=== PATIENT | female | born 1985 | race African-American/Black ===

== ENCOUNTER 2019-09-08 20:50 | Emergency (ER) | payer OTHER, SELFPAY ==
[2019-09-08 21:03] VITALS: BP 138/77; PULSE 77; RESP 16; TEMP 36.9; O2SAT 98
--- NOTE | 2019-09-13 06:12 | PC.NURSE ---
LATE ENTRY This note is being entered to document information to the patient's record. The following information was omitted on 09/08/2019, patient was triaged but not seen by edp.
== END 2019-09-08 21:03 | disposition left against medical advice (07) ==
LOC: ANHED 22:16
PROVIDERS: PCP Family Medicine
DX: M54.2 Cervicalgia (principal)
CPT/HCPCS: 99199

== ENCOUNTER 2022-01-31 11:40 | Outpatient (CLI) | payer OTHER, SELFPAY ==
--- NOTE | 2022-01-31 11:52 | ECG_ITS ---
Measurements Intervals [place] Rate: 70 P: 50 AL: 163 QRS: 38 QRSD: 81 T: 44 QT: 398 QTc: 431 Interpretive Statements SINUS RHYTHM BASELINE WANDER- I, II, AVR NORMAL ECG Electronically Signed On 01-31-2022 12:02:30 CDT by Merlin Linares D.O.
== END 2022-01-31 11:41 | disposition home or self-care (01) ==
LOC: ANHCARD 11:44
PROVIDERS: Visit Provider Obstetrics & Gynecology
DX: Z01.89 Encounter for other specified special examinations (principal)
CPT/HCPCS: 93005

== ENCOUNTER 2022-02-20 00:51 | Day surgery (SDC) | payer OTHER, SELFPAY ==
[2022-02-11 09:27] VITALS: BMI 47.9
--- NOTE | 2022-02-11 09:31 | PC.NURSE ---
Report to the Outpatient Waiting Room, entrance under the green pavilion located off [facility], at time 0730 on date 02/20/22. OR Time: 0930. - You and your visitor will be asked a series of questions to screen for COVID 19 for your protection. - Only one visitor is allowed at this time. - The patient visitor is requested to leave or wait in car when not with patient. - A mask is required within the hospital. Patients may have clear liquids (water, carbonated beverages, clear teas, apple juice) until 3 hours prior to surgery with a maximum of 20 ounces. - No food from midnight until time of surgery Take the following medications with a SIP of water the morning of surgery: N/A Medications to discontinue per physician: N/A Date to take last dose: N/A Please no make-up, nail urdu, hairspray, perfume, deodorant, or body powder the day of surgery. No jewelry (including any body piercings) or valuables the day of surgery, leave them at home. Please take a shower or bath the night before, or the morning of, surgery with an antibacterial soap. Wear comfortable, loose fitting clothing. - Jewelry must be removed prior to entering the operating room. Rings and piercings that are not removed may be cut off. - The hospital will not accept responsibility for valuables. - Please leave all valuables, including medications, at home the day of surgery. If you are going home after surgery, a licensed straight truck driver must drive you home. - NO public transportation without another adult. - We recommend that an adult stay with you for 24 hours following discharge. - We also recommend that you do not drive, make important decision, drink alcoholic beverages, or take any drugs that were not prescribed by your health care provider for at least 24 hours after your discharge time. Follow any additional instructions given to you from your surgeon. If you or anyone in your household have experienced Covid symptoms in the past week, please notify your surgeon or the nurse liaison at the phone number below for possible testing. Telephone instructions given to PT - ROLAND PARIS and asked if any additional questions and then verbalized understanding. Patient advised to call surgeon office or pre surgery nurse liaison [phone] if any additional questions.
[2022-02-20] VITALS (11 sets, daily range): BP systolic 125–142; BP diastolic 64–84; PULSE 65–87; RESP 12–20; TEMP 36.1–36.2; O2SAT 95–99
--- NOTE | 2022-02-20 08:26 | WPDANESEPPF ---
Anes - Initial Pre Proc Eval Procedure: Operation Date: 02/20/22 09:30 Proposed Procedures p Laparoscopic Bilateral Salpingectomy - Bella Schumacher MD Date/Time: 02/20/22 08:26 Surgeon: Bella Schumacher MD Pre Op Diagnosis: desires sterilzation Patient Data Age: 36 Gender: F Height: 1.66 m Weight: 132.9 kg Allergies Allergy/AdvReac Type Severity Reaction Status Date / Time Chocolate Allergy Unknown Hives Uncoded 02/11/22 09:26 Home Medications Medication Instructions Recorded Confirmed Type No Home Medications 02/11/22 02/11/22 History Patient hx anesthesia problems: none Family hx anesthesia problems: none Results Review: All pre-operative results and documents have been reviewed as part of the pre-operative evaluation. [facility] Social History Social History Smoking status: Never smoker Alcohol intake: current Drinks per week: 1 Substance use: never Substance use type: does not use Living arrangements: with family Gender identity (if verbalized by the patient): Female Spiritual care concerns: No Anes - Eval Final PreProcedure Day of Procedure 02/20/22 08:26 Patient weight: morbidly obese Heart: regular rate and rhythm Lungs: clear to auscultation Airway: Mallampati scale class II Neurological: alert and oriented Last oral intake: >/= 8 hours ASA classification: III Emergent: no Anesthetic plan: proceed Anesthesia type and monitoring: general ETT and standard monitoring Results Review: All pre-operative results and documents have been reviewed as part of the pre-operative evaluation. Informed Consent: The patient's anesthetic plan and its attendant risks and benefits were discussed with the patient/family/POA. Questions were solicited and answers provided to the satisfaction of the patient/family/POA.
--- NOTE | 2022-02-20 08:29 | PM.IMHP ---
H&P: HPI History of Present Illness Date/Time: 02/20/22 08:29 Chief Complaint: sterilization Narrative: Christine is a 36yo who desires permanent sterilization. Had CS x1, has HTN no meds. BMI 50. Review of Systems Review of Systems: All systems reviewed & are unremarkable except as noted in HPI and below PMFSH Social History Social History Smoking status: Never smoker Alcohol intake: current Drinks per week: 1 Substance use: never Substance use type: does not use Living arrangements: with family Gender identity (if verbalized by the patient): Female Spiritual care concerns: No Meds Home Medications and Allergies Home Medications Medication Instructions Recorded Confirmed Type No Home Medications 02/11/22 02/11/22 History Allergies Allergy/AdvReac Type Severity Reaction Status Date / Time Chocolate Allergy Unknown Hives Uncoded 02/11/22 09:26 Exam Const: General: no acute distress Other: morbidly obese Resp: Effort & Inspection: normal respiratory effort Auscultation: clear to auscultation bilaterally Cardio: Rate: regular rate Rhythm: regular rhythm GI: GI Palp: Yes Soft to palpation Extrem: General: normal to inspection Assessment and Plan Assessment and plan (1) Admission for sterilization: Code(s): Z30.2 - Encounter for sterilization Status: Acute Plan Consented for LSC salpingectomy, pt certain she is done childbearing ancef 2gm WIll proceed.
[2022-02-20] MEDS: ACETAMINOPHEN 500 MG TABLET 1000 MG PO (08:30)
--- NOTE | 2022-02-20 08:33 | WPDHPUPDATE1 ---
History and Physical Update Update Date/Time: 02/20/22 08:33 History and Physical has been reviewed, including an updated exam of the patient. There are NO changes in the patient's condition. Risks, benefits, and alternatives have been discussed and questions answered. Patient agrees to proceed with procedure.
[2022-02-20] MEDS: LACTATED RINGERS 1,000 ML 30 ML IV CONT (08:40)
[2022-02-20] MEDS: KETOROLAC 15 MG/ML VIAL (*BKC) IV PUSH (08:40)
[2022-02-20] MEDS: ceFAZolin 3 GM/D5W 100 ML 100 ML IVPB (08:48)
[2022-02-20] MEDS: BUPIVACAINE/EPINEPHRINE 0.25% 50 ML VIAL 20 ML INFILTRATE (09:15)
--- NOTE | 2022-02-20 09:34 | W.PM.PROC2 ---
Procedure Note - Detailed Date of Procedure 02/20/22 Pre-op Diagnosis desires sterilzation Post-op Diagnosis Same Procedure Performed Laparoscopic Bilateral Salpingectomy Surgeon Bella Schumacher MD Anesthesia General Indications undesired future fertility Findings Normal uterus and ovaries and tubes. Adhesion of anterior uterus to anterior abdominal wall. Description of Procedure The patient was taken to the OR and placed in dorthal lithotomy in [facility]. She received general anesthesia. A speculum was placed and the cervix grasped with a single tooth tenaculum and an acorn uterine manipulator placed easily. A lundberg catheter had previously been placed. She had received preoperative antibiotics. A 5mm subumbilical skin incision was made and using direct visualization, the trocar was inserted intraperitoneally. The abdomen was insufflated and the pelvis inspected with the above findings. Bilateral 5mm incisions were made and trocars were placed under direct visualization. The right tube was grasped and elevated and using the Ligasure device, the tube was sequentially cauterized and ligated and removed through the trocar and sent to pathology. Similarly, on the left, the tube was removed using the Ligasure device. Hemostasis was noted. The upper abdomen was inspected and noted to be normal. The small adhesion of the uterus to the anterior abdominal wall was taken down with Ligasure. The trocars were removed and the Co2 was removed from the abdomen. The skin was closed with 4-0 vicryl and steri strips. The patient tolerated the procedure well and was taken to the recovery room in stable condition. EBL 10cc. Estimated Blood Loss 10 Drains No Packing No Pathology Yes Complications No immediate complications Condition Stable Disposition Same day
[2022-02-20] MEDS: fentaNYL CITRATE INJ (*CRX) 100 MCG/2 ML VIAL 25 MCG IV PUSH ×3 (10:03→10:09)
[2022-02-20] MEDS: oxyCODONE HCL (*CRX) 5 MG TAB IR PO (12:11)
== END 2022-02-20 12:40 | disposition home or self-care (01) ==
PROVIDERS: Visit Provider Obstetrics & Gynecology
PROC: (CPT 49320; principal; 2022-02-20 09:30)
DX: Z30.2 Encounter for sterilization (principal); N73.6 Female pelvic peritoneal adhesions (postinfective); N83.8 Other noninflammatory disorders of ovary, fallopian tube and broad ligament; E66.01 Morbid (severe) obesity due to excess calories; Z68.42 Body mass index [BMI] 45.0-49.9, adult
CPT/HCPCS: 58661; 88302; A9270; J0330; J0690; J1100; J1885; J2250; J2405; J2704; J3010; J7030; J7120

== ENCOUNTER 2023-04-09 02:44 | Day surgery (SDC) | payer OTHER, SELFPAY ==
[2023-04-07 17:34] VITALS: BMI 52.2
--- NOTE | 2023-04-07 18:53 | PC.NURSE ---
Report to the Outpatient Waiting Room, entrance under the green pavilion located off [facility], at 1045 on 04-09-23. Planned Procedure Time: 1245. Time changes happen often and if your time is changed the preop area will call you the afternoon before. - You and your visitor will be asked to self-screen and do not enter if you have any COVID symptoms. - A mask is optional within the hospital at this time. Patients may have clear liquids (water, carbonated beverages, clear teas, apple juice) until 3 hours prior to surgery with a maximum of 20 ounces. 0945 - No food from midnight until time of surgery - Infants may have breast milk until 4 hours before surgery, formula 6 hours prior to surgery. - Children will be allowed to drink immediately following surgery. If applicable, please bring a bottle or sippy cup to assist with drinking. Juice, water, soda, and popsicles are readily available. For infants on formula, please bring formula the day of surgery. Pacifiers are allowed. Take the following medications with a SIP of water the morning of surgery: None DO NOT STOP ANY OF YOUR OTHER PRESCRIPTION MEDICATIONS PRIOR TO SURGERY ?EXCEPT THE FOLLOWING Medications to discontinue per physician: N/A Please no make-up, nail setswana, hairspray, perfume, deodorant, or body powder the day of surgery. No jewelry (including any body piercings) or valuables the day of surgery, leave them at home. Please take a shower or bath the night before, or the morning of, surgery with an antibacterial soap. Wear comfortable, loose fitting clothing. Children are encouraged to wear pajamas. - Jewelry must be removed prior to entering the operating room. Rings and piercings that are not removed may be cut off. - The hospital will not accept responsibility for valuables. - Please leave all valuables, including medications, at home the day of surgery. If you are going home after surgery, a licensed tow car driver must drive you home. - NO public transportation without another adult if you receive anesthesia. - We recommend that an adult stay with you for 24 hours following discharge. - We also recommend that you do not drive, make important decision, drink alcoholic beverages, or take any drugs that were not prescribed by your health care provider for at least 24 hours after your discharge time. For Pediatric surgeries, we recommend two adults accompany the child home. Follow any additional instructions given to you from your surgeon. If you or anyone in your household have experienced Covid symptoms in the past week, please notify your surgeon or the nurse liaison at the phone number below for possible testing. Telephone instructions given to Christine Dumont and asked if any additional questions and then verbalized understanding. Patient advised to call surgeon office or pre surgery nurse liaison [phone] if any additional questions.
--- NOTE | 2023-04-09 10:32 | P.PNAN_ITS ---
Anes - Initial Pre Proc Eval Procedure: Operation Date: 04/09/23 12:45 Proposed Procedures p Hysteroscopy Dilation and Curettage Mai Endometrial Ablation - Bella Schumacher MD Date/Time: 04/09/23 10:32 Surgeon: Bella Schumacher MD Pre Op Diagnosis: menorrhagia Patient Data Age: 38 Gender: F Height: 1.66 m Weight: 144.7 kg Allergies Allergy/AdvReac Type Severity Reaction Status Date / Time Chocolate Allergy Unknown Hives Uncoded 04/09/23 11:35 Home Medications Medication Instructions Recorded Confirmed Type ferrous sulfate 325 mg (65 mg 325 mg PO DAILY 04/07/23 04/09/23 History iron) tablet (FeroSul) gabapentin 300 mg capsule 300 mg PO TID 04/07/23 04/09/23 History metformin 500 mg tablet,extended 500 mg PO DAILY 04/07/23 04/09/23 History release 24 hr omeprazole 20 mg capsule,delayed 20 mg PO DAILY 04/07/23 04/09/23 History release Patient hx anesthesia problems: none Family hx anesthesia problems: none Results Review: All pre-operative results and documents have been reviewed as part of the pre- operative evaluation. [facility] Past Medical History Medical History (Updated 04/09/23 @ 10:33 by Rafael Sherman DO) Asthma GERD (gastroesophageal reflux disease) Surgical History Surgical History (Updated 04/09/23 @ 10:33 by Rafael Sherman DO) History of History of tubal ligation Social History Social History Smoking status: Never smoker Second hand tobacco smoke exposure: Yes Alcohol intake: current Drinks per week: 1 Alcohol use details: ocassionally Substance use: never Substance use type: does not use Living arrangements: with family Gender identity (if verbalized by the patient): Female Spiritual care concerns: No Anes - Eval Final PreProcedure Day of Procedure 04/09/23 10:32 Patient weight: super morbidly obese Heart: regular rate and rhythm Lungs: clear to auscultation Airway: Mallampati scale class III Neurological: alert and oriented Last oral intake: >/= 8 hours ASA classification: III Emergent: no Anesthetic plan: proceed Anesthesia type and monitoring: general GIVS and LMA and standard monitoring Results Review: All pre-operative results and documents have been reviewed as part of the pre- operative evaluation. Informed Consent: The patient's anesthetic plan and its attendant risks and benefits were discussed with the patient/family/POA. Questions were solicited and answers provided to the satisfaction of the patient/family/POA.
[2023-04-09 10:57] VITALS: BP 145/84; PULSE 77; RESP 20; TEMP 36.6; O2SAT 100
[2023-04-09] MEDS: LACTATED RINGERS 1,000 ML 30 ML IV CONT (11:40)
[2023-04-09 11:45] LABS: Hematocrit 35.3 % (37.0-47.0); Hemoglobin 11.2 g/dL (12.0-15.0)
[2023-04-09 11:57] LABS: Anion Gap 8 mmol/L (8-16); Blood Urea Nitrogen 11 mg/dL (7-17); Calcium 8.8 mg/dL (8.4-10.2); Carbon Dioxide 23 mmol/L (22-30); Chloride 107 mmol/L (98-107); Estimated CRCL calculation 140 ml/min; Estimated Glomerular Filt Rate > 60; Glucose 98 mg/dL (65-110); Potassium 4.1 mmol/L (3.4-5.0); Sodium 138 mmol/L (137-145)
--- NOTE | 2023-04-09 12:40 | PM.IMHP ---
H&P: HPI History of Present Illness Date/Time: 04/09/23 12:40 Chief Complaint: menorrhagia Narrative: Christine is a 38yo whith menorrhagia who presents for HSC and endometrial ablation today. She has recently expelled a MIrena, though it worked until it was expelled. She expelled two prior >10 years ago. She has migraines and cannot be on estrogen. She is anemic from her bleeding. EMB benign within the last few months. Tubes tied. Review of Systems Review of Systems: All systems reviewed & are unremarkable except as noted in HPI and below PMFSH Past Medical History Medical History (Updated 04/09/23 @ 12:42 by Bella Schumacher MD) Asthma GERD (gastroesophageal reflux disease) Surgical History Surgical History (Updated 04/09/23 @ 10:33 by Rafael Sherman DO) History of History of tubal ligation Social History Social History Smoking status: Never smoker Second hand tobacco smoke exposure: Yes Alcohol intake: current Drinks per week: 1 Alcohol use details: ocassionally Substance use: never Substance use type: does not use Living arrangements: with family Gender identity (if verbalized by the patient): Female Spiritual care concerns: No Meds Home Medications and Allergies Home Medications Medication Instructions Recorded Confirmed Type ferrous sulfate 325 mg (65 mg 325 mg PO DAILY 04/07/23 04/09/23 History iron) tablet (FeroSul) gabapentin 300 mg capsule 300 mg PO TID 04/07/23 04/09/23 History metformin 500 mg tablet,extended 500 mg PO DAILY 04/07/23 04/09/23 History release 24 hr omeprazole 20 mg capsule,delayed 20 mg PO DAILY 04/07/23 04/09/23 History release Allergies Allergy/AdvReac Type Severity Reaction Status Date / Time Chocolate Allergy Unknown Hives Uncoded 04/09/23 11:35 Vital Signs Vital Signs - 24 hr 04/09/23 10:57 Temperature 97.9 F Pulse Rate 77 Respiratory Rate 20 Blood Pressure 145/84 H Pulse Oximetry 100 Oxygen Delivery Room Air Exam Const: General: no acute distress Resp: Effort & Inspection: normal respiratory effort Auscultation: clear to auscultation bilaterally Cardio: Rate: regular rate Rhythm: regular rhythm GI: GI Palp: Yes Soft to palpation Extrem: General: normal to inspection H&P: Results Labs Labs: Short CBC 04/09/23 Range/Units 11:22 Hgb 11.2 L (12.0-15.0) g/dL Hct 35.3 L (37.0-47.0) % BMP 04/09/23 11:22 Sodium 138 Potassium 4.1 Chloride 107 Carbon Dioxide 23 BUN 11 Creatinine 0.70 Glucose 98 Calcium 8.8 Assessment and Plan Assessment and plan (1) Menorrhagia: Code(s): N92.0 - Excessive and frequent menstruation with regular cycle Status: Acute (2) Anemia due to blood loss: Code(s): D50.0 - Iron deficiency anemia secondary to blood loss (chronic) Status: Acute Plan consented for HSC and endometrial ablation. Previously discussed RBA in detail.. will proceed.
--- NOTE | 2023-04-09 12:43 | WPDHPUPDATE1 ---
History and Physical Update Update Date/Time: 04/09/23 12:43 History and Physical has been reviewed, including an updated exam of the patient. There are NO changes in the patient's condition. Risks, benefits, and alternatives have been discussed and questions answered. Patient agrees to proceed with procedure.
--- NOTE | 2023-04-09 13:23 | P.OP_ITS ---
Procedure Note - Detailed Date of Procedure 04/09/23 Pre-op Diagnosis menorrhagia Post-op Diagnosis Same Procedure Performed Hysteroscopy and Mai endometrial ablation Surgeon Bella Schumacher MD [employer] Worker none Anesthesia MAC and Local Indications menorrhagia and/or menometrorrhagia Findings normal endometrial cavity. Description of Procedure The patient was taken to the operating room and placed in supine position. She received MAC anesthesia and was placed in dorsal lithotomy position in stirrups. A speculum was placed and the anterior lip of the cervix was grasped with a single tooth tenaculum. A paracervical block of 10cc of 0.25% marcaine with epinephrine was done. The cervix sounded to 9.5cm and the cervix was 5cm long, giving a uterine cavity length of 4.5cm. The Mai device was set to this length. The cervix was sequentially dilated to an 8 Zainab. The hysteroscope was inserted and the cavity visualized and appeared to be normal. The scope was removed and the Mai device inserted through the cervix easily. The balloon was inflated to attain a cervical seal. The device was activated and passed the cavity assessment. It ablated for 2 minutes. The device was removed, the hysteroscope was reinserted and the endometrium was noted to be blanched appropriately. The scope was once again removed. The tenaculum was removed and the cervix was made hemostatic with pressure. The speculum was removed. The patient was awakened from anesthesia and taken to the recovery room in stable condition. Estimated Blood Loss 5 Drains No Packing No Pathology None sent Complications No immediate complications Condition Stable Disposition Same day
[2023-04-09 13:28] VITALS: BP 124/73; PULSE 96; RESP 12; O2SAT 100
[2023-04-09 13:58] VITALS: BP 120/70; PULSE 84; RESP 14
[2023-04-09] MEDS: oxyCODONE HCL (*CRX) 5 MG TAB IR PO (14:06)
[2023-04-09 14:28] VITALS: BP 140/85; PULSE 70; RESP 16
== END 2023-04-09 14:55 | disposition home or self-care (01) ==
PROVIDERS: Anesthesiology; Visit Provider Obstetrics & Gynecology
PROC: 0U5B8ZZ Destruction of Endometrium, Via Natural or Artificial Opening Endoscopic (ICD-10-PCS; CPT 58563; principal; 2023-04-09 12:45)
DX: N92.0 Excessive and frequent menstruation with regular cycle (principal); D50.0 Iron deficiency anemia secondary to blood loss (chronic); K21.9 Gastro-esophageal reflux disease without esophagitis; Z79.84 Long term (current) use of oral hypoglycemic drugs; E66.01 Morbid (severe) obesity due to excess calories; Z68.43 Body mass index [BMI] 50.0-59.9, adult; Z98.51 Tubal ligation status
CPT/HCPCS: 58563; 36415; 80048; 85014; 85018; A9270; J1100; J2250; J2405; J2704; J3010; J7120